=== PATIENT | female | born 1970 | race Two or more races ===

== ENCOUNTER → 2018-02-13 | Outpatient (CLI) | payer OTHER ==
[~2018-02-13] MED LIST: CELEBREX PO; KETO10TA2 PO; MILLIPRED DP5 M1 PO; PROTONIX40 MG PO; ZOFRAN4 MG PO
== END | disposition home or self-care (01) ==
LOC: NUCLEAR 12:00
DX: M85.88 Other specified disorders of bone density and structure, other site (principal)

== ENCOUNTER → 2018-11-17 | Outpatient (CLI) | payer OTHER | END | disposition home or self-care (01) | LOC: LAB 12:41 | DX: J11.1 Influenza due to unidentified influenza virus with other respiratory manifestations (principal); J06.9 Acute upper respiratory infection, unspecified ==

== ENCOUNTER 2019-05-06 15:19 | Emergency (ER) | payer OTHER ==
[~2019-05-06] VITALS: Ht 165.1 cm; Wt 76.2 kg
[2019-05-06] MEDS ORDERED: NORVASC5 MG (15:27)
[2019-05-06] MEDS ORDERED: LUMIGAN2.5 M1 (15:28)
[2019-05-06] MEDS ORDERED: COZAAR25 MG (15:28)
[2019-05-06] MEDS ORDERED: SIMVASTATIN10 MG (15:29)
== END 2019-05-06 18:06 | disposition home or self-care (01) ==
LOC: ER 15:19
DX: M54.5 Low back pain (principal); M62.830 Muscle spasm of back

== ENCOUNTER 2019-08-09 10:41 | Outpatient (CLI) | payer OTHER ==
[~2019-08-09 10:41] MED LIST changes: +COZAAR25 MG; +LUMIGAN2.5 M1; +NORVASC5 MG; +SIMVASTATIN10 MG
== END 2019-08-09 10:46 | disposition home or self-care (01) ==
LOC: RAD 10:41
DX: M45.8 Ankylosing spondylitis sacral and sacrococcygeal region (principal); M19.072 Primary osteoarthritis, left ankle and foot; M45.9 Ankylosing spondylitis of unspecified sites in spine; M19.042 Primary osteoarthritis, left hand

== ENCOUNTER 2022-07-06 09:20 | Outpatient (CLI) | payer OTHER | END 2022-07-06 09:27 | disposition home or self-care (01) | LOC: RAD 09:20 | PROVIDERS: ATTEND Physical Medicine & Rehabilitation | DX: M54.2 Cervicalgia (principal); M54.6 Pain in thoracic spine; M72.2 Plantar fascial fibromatosis; M54.50 Low back pain, unspecified ==

== ENCOUNTER 2022-09-24 14:14 | Emergency (ER) | payer OTHER ==
[~2022-09-24] VITALS: Ht 165.1 cm; Wt 80.3 kg
[2022-09-24] MEDS ORDERED: OSEL75CA PO (16:42)
== END 2022-09-24 16:53 | disposition home or self-care (01) ==
LOC: ER 14:14
DX: J10.1 Influenza due to other identified influenza virus with other respiratory manifestations (principal); Z88.8 Allergy status to other drugs, medicaments and biological substances

== ENCOUNTER 2024-01-15 21:25 | Emergency (ER) | payer OTHER ==
[~2024-01-15] VITALS: Ht 165.1 cm; Wt 79.8 kg
[~2024-01-15 21:25] MED LIST changes: +OSEL75CA PO
[2024-01-15] MEDS ORDERED: COZAAR100 MG PO (22:24)
[2024-01-15] MEDS ORDERED: TOPROL XL25 M1 PO (22:25)
[2024-01-15] MEDS ORDERED: LOSARTAN-HCTZ1 EAC2 PO (22:25)
[2024-01-15] MEDS ORDERED: CRESTOR20 MG PO (22:26)
[2024-01-15] MEDS ORDERED: LATANOPROST2.5 ML OP (22:28)
[2024-01-15] MEDS ORDERED: 0.9 % SODIUM CHLORIDE 1,000 ML IV STA (22:37)
[2024-01-15] MEDS ORDERED: ONDANSETRON HCL 2 MG/ML VIAL IV STA (22:38)
[2024-01-15 23:31] LABS: HEMATOCRIT 38.3 % (36.0-45.00); HEMOGLOBIN 12.7 g/dL (12.0-15.00); MEAN CELL VOLUME 87.3 fL (80.00-100.00); MEAN CORPUSCULAR HGB CONC 33.3 g/dl (32.0-36.0); PLATELET COUNT 155 K/uL (150-450); RED BLOOD COUNT 4.38 M/uL (4.00-6.00); RED CELL DISTRIBUTION WIDTH 13.3 % (11.5-14.5)
[2024-01-16 00:23] LABS: CALCIUM 8.9 mg/dL (8.5-10.1); CREATININE SERUM 0.76 mg/dL (0.55-1.02); GFR 79.31; POTASSIUM 3.94 mEq/L (3.5-5.1)
[2024-01-16 04:52] LABS: PH,URINE 7.5 (5.0-8.0); URINE APPEARANCE Cloudy; URINE BILIRRUBIN Negative (NEGATIVE); URINE BLOOD Negative; URINE COLOR Yellow; URINE GLUCOSE Negative (NEGATIVE); URINE LEUKOCYTE Large; URINE NITRATE Negative; URINE PROTEIN Negative (NEGATIVE)
[2024-01-16 04:55] LABS: URINE BACTERIA 7485.4 uL (0.0-1933); URINE EPITHELIAL CELLS 46.3 uL (0.0-38.8); URINE RBC 6.6 uL (0.0-20.8); URINE WBC 148.2 uL (0.0-23.2)
[2024-01-16] MEDS ORDERED: KETOROLAC TROMETHAMINE 30 MG VIAL IV STA (05:31)
[2024-01-16] MEDS ORDERED: CEFTRIAXONE SODIUM 1,000 MG VIAL IV STA (05:32)
[2024-01-16] MEDS ORDERED: CEPHALEXIN500 MG PO (05:41)
[2024-01-16] MEDS ORDERED: PEPCID40 MG PO (05:41)
[2024-01-16] MEDS ORDERED: DOLOGESIC-DF 51 EACH PO ×2 (05:41→05:42)
[2024-01-16] MEDS ORDERED: ZOFRAN8 MG PO (05:41)
== END 2024-01-16 05:47 ==
LOC: ER 21:25
PROVIDERS: Emergency Medicine
DX: N39.0 Urinary tract infection, site not specified (principal); I10 Essential (primary) hypertension; Z88.8 Allergy status to other drugs, medicaments and biological substances

== ENCOUNTER 2024-08-24 09:46 | Outpatient (CLI) | payer OTHER ==
[~2024-08-24 09:46] MED LIST changes: +CEPHALEXIN500 MG PO; +COZAAR100 MG PO; +CRESTOR20 MG PO; +DOLOGESIC-DF 51 EACH PO; +LATANOPROST2.5 ML OP; +LOSARTAN-HCTZ1 EAC2 PO; +PEPCID40 MG PO; +TOPROL XL25 M1 PO; +ZOFRAN8 MG PO
== END 2024-08-24 09:48 | disposition home or self-care (01) ==
LOC: TOM 09:46
PROVIDERS: ATTEND Internal Medicine Gastroenterology
DX: K56.51 Intestinal adhesions [bands], with partial obstruction (principal); R19.5 Other fecal abnormalities